=== PATIENT | male | born 1975 | race Caucasian/White ===

== ENCOUNTER → 2024-10-23 08:38 | Outpatient (CLI) | payer OTHER, SELFPAY ==
--- NOTE | 2024-10-23 13:31 | ST.SWALLOW ---
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 Robert Hallman MD Reason for Referral Swallowing concerns Setting Setting Outpatient Care Patient Information Identification Type Name,Date of Patient History Rodrick Reid is a 48-year- old male referred to speech pathology for evaluation of swallowing function, including Modified Barium Swallow Study (MBSS), to visualize and assess swallow function and anatomy, determine aspiration risk, make appropriate and updated diet and treatment recommendations, as well as to identify need for additional referrals. He reported onset of swallowing difficulty about 10 years ago, with no change to severity/frequency. Pt expressed that dry foods (such as bread, meat, rice) get stuck in his throat. Liquid wash and slow rate often help in clearing this sensation. He denied difficulty with liquids or pills. He reported feeling minimal pain and pressure if a large bolus gets stuck. This sticking sensation occurs on the first bite of intake only. Pt denied coughing, choking, or other overt s/sx of aspiration. He denied history of GERD or esophageal issues. He denied neurological history or recent injuries or surgeries to the head/neck area. He reported he has not had to modify his diet and has not had unintentional weight loss. Current diet is thin liquids, regular textures, and pills with liquid wash. Subjective Observations Pt arrived to the appointment on time. The directions and procedures were described for him. He indicated he understood and agreed to proceed. He was able to provide case history without overt difficulty. Oral motor evaluation was WNL. Dentition natural and in good hygiene. Patient Positioning Position View Lat-A/P Imaging Lateral View Textures Administered Trials Presented Thin Liquid via Spoon (IDDSI 0 ),Thin Liquid via Cup (IDDSI 0 ),Puree (IDDSI 4),Regular ( IDDSI 7) Barium Tablet Yes The IDDSI Framework Protocol: IDDSI.1 Oral Impairment Source: The Modified Barium Swallow Impairment Profile (MBSImP??) Lip Closure No labial escape Tongue Control During Bolus Hold Cohesive bolus between tongue to palatal seal Bolus Preparation/Mastication Timely & efficient chewing & mashing Bolus Transport/Lingual Motion Brisk tongue motion Oral Residue Complete oral clearance Initiation of Pharyngeal Swallow Bolus head at posterior laryngeal surface of epiglottis Additional Oral Impairment Observations Oral phase WNL. Oral acceptance of bolus was WNL. Pt demonstrated adequate labial seal. Bolus formation was organized and efficient. Anterior-posterior transit of the bolus was timely. Mastication was timely. No oral residue noted post- swallow. Oral bolus control was adequate. Pharyngeal Impairment Source: The Modified Barium Swallow Impairment Profile (MBSImP??) Soft Palate Elevation No bolus between soft palate & pharyngeal wall Laryngeal Elevation Comp.sup.move.thyroid cart.w/ comp.approx.arytenoids to epiglot petiole Anterior Hyoid Excursion Complete anterior movement Epiglottic Movement Complete inversion Laryngeal Vestibular Closure Complete; no air/contrast in laryngeal vestibule Pharyngeal Stripping Wave Present - complete Pharyngoesophageal Segment Opening Complete distention & complete duration; no obstruction of flow Tongue Base Retraction No contrast between tongue base & posterior pharyngeal wall Pharyngeal Residue Complete pharyngeal clearance Additional Pharyngeal Impairment Pharyngeal phase was WNL. Observations Swallow was initiated at the base of tongue for liquids and solids. Velopharyngeal closure was WNL. Hyoid/ laryngeal elevation was judged to be complete. The epiglottis did invert; inversion is characterized as complete. Tongue base retraction was WNL. Pharyngeal stripping wave was complete. Cricopharyngeal opening appeared adequate and did not appear to impede bolus flow into the esophagus. No post- swallow residue was noted across all trials. No tracheal penetration or laryngeal aspiration were observed. A/P View Textures Administered Trials Presented Thin Liquid via Cup (IDDSI 0), Regular (IDDSI 7) The IDDSI Framework Protocol: IDDSI.1 A/P View Observations Pharyngeal Contraction Complete Esophageal Clearance Upright Position Complete clearance; esophageal coating Esophageal Function WFL Additional A-P Observations No esophageal phase impairments were observed. Pharyngeal contraction and esophageal clearance appeared complete. The barium tablet passed through to the esophagus without overt difficulties. Pt did endorse sticking sensation during trial of regular solid. Clinical Impressions Dysphagia Type Esophageal Findings Oral and pharyngeal phases of the swallow were WNL. While pt did not demonstrate overt esophageal phase impairments during the study, he reported sticking sensation during trial of regular texture ( cracker). Of note, he reports he only experiences sticking sensation with his first bite during meals. Recommend pt continue to utilize liquid wash and alternate solids and liquids as needed. Recommend GI referral further assessment of the esophageal phase of the swallow. Patient Appropriate for Therapy No: Esophageal dysphagia Recommendations Diet Liquids Order Thin (IDDSI 0) Diet Order Regular (IDDSI 7) Medication Recommendation As Tolerated,Whole Aspiration Precautions Recommended Precautions Upright at 90 Degrees, Alternate Liquids/Solids,Small Bites/Sips Additional Precautions Liquid wash as needed Treatment Plan Recommended Referrals Primary Care Physician,GI Consult
--- NOTE | 2024-10-23 13:35 | ST-OP ANOTE ---
Physical, Occupational & Speech Therapy At [facility] Speech Therapy Note MBSS report sent via RightFax to referring provider, Dr. Robert Hallman MD. Recommended GI referral.
== END ==
PROVIDERS: PCP Family Medicine; Referring Provider Family Medicine; Visit Provider Family Medicine
DX: R13.10 Dysphagia, unspecified (principal)
CPT/HCPCS: 74230; 92611